=== PATIENT | male | born 1980 | race African-American/Black ===

== ENCOUNTER 2017-01-29 03:57 | Emergency (ER) | payer OTHER ==
[~2017-01-29] VITALS: Ht 185.4 cm; Wt 80.5 kg
[~2017-01-29 03:57] MED LIST: ALLEGRA60 MG PO; BACTRIM,SEPT1 TABLET PO; FLEXERIL10 MG PO; LORTAB 5-325 M1 EACH PO; MOTRIN800 MG PO; PERCOCET 5/31 TABLET PO; ULTRAM50 MG PO; VALIUM5 MG PO
[2017-01-29] MEDS ORDERED: NARCAN4 MG NS (04:13)
[2017-01-29] MEDS ORDERED: PEN-VEE K,VEET500 MG PO (05:27)
[2017-01-29 05:37] VITALS: BP 113/76
== END 2017-01-29 05:38 | disposition home or self-care (01) ==
LOC: EME 03:57
DX: T40.2X1A Poisoning by other opioids, accidental (unintentional), initial encounter (principal); K02.9 Dental caries, unspecified; F17.200 Nicotine dependence, unspecified, uncomplicated
CPT/HCPCS: 80048; 81003; 85027; 99281; 99284; G0480; J2310

== ENCOUNTER 2017-10-20 15:05 | Inpatient (IN) | payer OTHER ==
[2017-10-20] VITALS (13 sets, daily range): BP systolic 120–222; BP diastolic 85–169
[~2017-10-20] VITALS: Ht 182.9 cm; Wt 81.2 kg
[~2017-10-20 15:05] MED LIST changes: +NARCAN4 MG NS; +PEN-VEE K,VEET500 MG PO
[2017-10-20 15:20] LABS: CREATININE 1.5 mg/dL (0.6-1.3); POTASSIUM 3.8 mEq/L (3.7-5.4)
[2017-10-20 15:32] LABS: EOSINOPHIL (%) 2.2 % (0-5); EOSINOPHIL COUNT 0.1 K/uL (0-0.3); HEMATOCRIT 34.5 % (38.0-50.0); IMMATURE GRANULOCYTE (%) 4.1 % (0.0-0.7); IMMATURE GRANULOCYTE COUNT 0.2 K/uL; INSTRUMENT ABS NEUTROPHIL CT 1.5 K/uL; LYMPHOCYTE COUNT 3.5 K/uL (1.0-2.8); MCH 32.8 PG (29.0-34.0); MCHC 33.9 G/DL (30.0-36.0); MCV 96.6 FL (86-99); MEAN PLAT.VOLUME 10.6 uM^3 (9.0-12.4); MONOCYTE (%) 4.3 % (3-12); MONOCYTE COUNT 0.2 K/uL (0-0.8); NEUTROPHIL (%) 26.1 % (45-76); NEUTROPHIL COUNT 1.5 K/uL (1.8-6.4); PLATELET COUNT 163 K/uL (156-360); RBC DIS.WIDTH-CV 12.4 % (11.8-14.6); RBC DIS.WIDTH-SD 44.2 % (39-53); RED BLOOD COUNT 3.57 M/uL (4.00-5.50); WHITE BLOOD COUNT 5.6 K/uL (4.1-10.2)
[2017-10-20 15:38] LABS: INTER. NORMALIZED RATIO 1.1; PROTHROMBIN TIME 12.7 SEC (10.2-12.9)
[2017-10-20 15:41] LABS: PTT 30.8 SEC (25-37)
[2017-10-20 15:43] LABS: CHLORIDE 105 mEq/L (99-109); POTASSIUM 3.9 mEq/L (3.7-5.4); SODIUM 142 mEq/L (136-147)
[2017-10-20 15:46] LABS: GLUCOSE 170 mg/dL (70-99)
[2017-10-20 15:47] LABS: ANION GAP 17 MEQ/L (2-14); TOTAL BILIRUBIN 0.5 mg/dL (0.0-1.0)
[2017-10-20 15:49] LABS: GFR ESTIMATE (CALCULATED) > 59 mL/min/ (58.99-99999); SERUM ETHYL ALCOHOL < 10 mg/dL
[2017-10-20 15:50] LABS: ALKALINE PHOSPHATASE 54 IU/L (3-129)
[2017-10-20 15:51] LABS: UREA NITROGEN (BUN) 17 mg/dL (9-23)
[2017-10-20 15:52] LABS: TROP-I INTERPRETATION NEGATIVE; TROPONIN-I < 0.01 ng/mL (0.0-0.30)
[2017-10-20 15:53] LABS: SALICYLATE < 5.0 MG/DL (15-30)
[2017-10-20 15:54] LABS: LIPASE 23 U/L (1.0-51.0)
[2017-10-20 15:55] LABS: BASE EXCESS -5.3 mEq/L (-3 to +3); BICARBONATE 22.6 mEq/L (22-26); CARBOXY HGB 4.2 % (0-5); PCO2 54 mm Hg (35-45); PO2 99 mm Hg (80-100)
[2017-10-20 15:56] LABS: pH 7.23 (7.35-7.45)
[2017-10-20 15:57] LABS: ADD MIUA? YES; BILIRUBIN NEGATIVE; BLOOD MODERATE; COLOR AMBER ((YELLOW)); GLUCOSE (STRIP) NEGATIVE; KETONES NEGATIVE; LEUKOCYTES NEGATIVE; NITRITE NEGATIVE; PROTEIN (STRIP) 100; SPECIFIC GRAVITY 1.025 (1.000-1.030)
[2017-10-20 15:57] LABS: COMMENTS - BLOOD GASES C+; DEVICE VENT; FI02 70 %; MECHANICAL RATE 14 resp/min; MODE AC; PEEP 5 CM/H20; SITE RR; TIDAL VOLUME 500 ML; TOTAL RESP RATE 14 resp/min
[2017-10-20 16:17] LABS: AMPHETAMINE PRESUMPTIVE POSITIVE (500 ng/mL); BENZODIAZEPINES PRESUMPTIVE POSITIVE (150 ng/mL); COCAINE PRESUMPTIVE POSITIVE (150 ng/mL); METHAMPHETAMINE NEGATIVE (500 ng/mL); OPIATES (MORPHINE) PRESUMPTIVE POSITIVE (100 ng/mL); PHENCYCLIDINE NEGATIVE (25 ng/mL); THC CANNABINOIDS PRESUMPTIVE POSITIVE (50 ng/mL); TRICYCLIC ANTIDEPRESSANTS NEGATIVE (300 ng/mL)
[2017-10-20 16:18] LABS: ADD MEDTOX COMMENT Y; BARBITURATES NEGATIVE (200 ng/mL); INTERNAL CONTROLS VALID? YES; METHADONE NEGATIVE (200 ng/mL); OXYCODONE PRESUMPTIVE POSITIVE (100 ng/mL); PROPOXYPHENE NEGATIVE (300 ng/mL)
[2017-10-20 16:19] LABS: BACTERIA RARE /HPF; CASTS NONE SEEN /LPF; CRYSTALS PRESENT; EPITHELIAL CELLS NONE SEEN /HPF; MUCUS NONE SEEN /LPF; RED BLOOD CELLS 20-30 /HPF (0-5); UCUL ADDED? NO; WHITE BLOOD CELLS 0-5 /HPF (0-5)
[2017-10-20 16:20] LABS: AMORPHOUS URATES CRYSTALS 3+
[2017-10-20 16:47] LABS: BENZODIAZEPINES, URINE SCREEN POSITIVE (200 ng/mL)
[2017-10-20 18:33] LABS: POINT-OF-CARE METER ID UU14174217
[2017-10-20 18:37] LABS: ANION GAP 14 MEQ/L (2-14); CHLORIDE 107 MEQ/L (99-109); MAGNESIUM 2.1 mg/dl (1.3-2.7); SAMPLE HEMOLYSIS CHECK 0; SAMPLE ICTERIC CHECK 0; SAMPLE LIPEMIA CHECK 0; SODIUM 141 MEQ/L (136-147)
[2017-10-20 18:41] LABS: PROTHROMBIN TIME 11.1 SEC (10.2-12.9)
[2017-10-20 18:43] LABS: GFR ESTIMATE (CALCULATED) > 59 mL/min/ (58.99-99999); GLUCOSE 141 mg/dL (70-99); UREA NITROGEN (BUN) 18 mg/dL (9-23)
[2017-10-20 18:44] LABS: PTT 31.2 SEC (25-37)
[2017-10-20 18:45] LABS: POTASSIUM 3.1 MEQ/L (3.7-5.4)
[2017-10-20 18:55] LABS: BASE EXCESS -2.5 mEq/L (-3 to +3); BICARBONATE 20.6 mEq/L (22-26); CARBOXY HGB 1.6 % (0-5); METHEMOGLOBIN 1.6 % (0-1.5)
[2017-10-20 18:56] LABS: DEVICE VENT; FI02 70 %; MECHANICAL RATE 14 resp/min; MODE AC; PCO2 31 mm Hg (35-45); PEEP 5 CM/H20; PO2 164 mm Hg (80-100); SITE ALINE; TIDAL VOLUME 500 ML; pH 7.43 (7.35-7.45)
[2017-10-20 19:18] LABS: METH RESISTANT S AUREUS PCR NEGATIVE (NEGATIVE)
[2017-10-20 20:01] LABS: PROBE CHECK PASS; SPECIMEN PROCESSING CONTROL PASS
[2017-10-20 20:03] LABS: EOSINOPHIL (%) 0.9 % (0-5); HEMATOCRIT 48.6 % (38.0-50.0); IMMATURE GRANULOCYTE (%) 0.9 % (0.0-0.7); INSTRUMENT ABS NEUTROPHIL CT 2.5 K/uL; LYMPHOCYTE COUNT 1.6 K/uL (1.0-2.8); MCH 31.7 PG (29.0-34.0); MCV 90.5 FL (86-99); MEAN PLAT.VOLUME 9.7 uM^3 (9.0-12.4); MONOCYTE COUNT 0.1 K/uL (0-0.8); NEUTROPHIL (%) 58.8 % (45-76); NEUTROPHIL COUNT 2.5 K/uL (1.8-6.4); PLATELET COUNT 219 K/uL (156-360); RBC DIS.WIDTH-CV 12.1 % (11.8-14.6); RBC DIS.WIDTH-SD 40.4 % (39-53); RED BLOOD COUNT 5.37 M/uL (4.00-5.50); WHITE BLOOD COUNT 4.3 K/uL (4.1-10.2)
[2017-10-21] VITALS (15 sets, daily range): BP systolic 109–183; BP diastolic 73–114
[2017-10-21 00:39] LABS: POINT-OF-CARE METER ID UU14174217; POINT-OF-CARE USER ID PHATLC
[2017-10-21 01:05] LABS: HEMATOCRIT 47.5 % (38.0-50.0); MCH 31.9 PG (29.0-34.0); MCHC 35.6 G/DL (30.0-36.0); MCV 89.8 FL (86-99); MEAN PLAT.VOLUME 10.5 uM^3 (9.0-12.4); PLATELET COUNT 231 K/uL (156-360); RBC DIS.WIDTH-CV 11.9 % (11.8-14.6); RBC DIS.WIDTH-SD 39.6 % (39-53); RED BLOOD COUNT 5.29 M/uL (4.00-5.50); WHITE BLOOD COUNT 8.9 K/uL (4.1-10.2)
[2017-10-21 01:08] LABS: INTER. NORMALIZED RATIO 1.1; PROTHROMBIN TIME 12.4 SEC (10.2-12.9)
[2017-10-21 01:19] LABS: CHLORIDE 111 mEq/L (99-109); POTASSIUM 2.7 mEq/L (3.7-5.4); SODIUM 143 mEq/L (136-147)
[2017-10-21 01:20] LABS: MAGNESIUM 1.9 mg/dL (1.3-2.7)
[2017-10-21 01:22] LABS: ANION GAP 16 MEQ/L (2-14); GLUCOSE 214 mg/dL (70-99)
[2017-10-21 01:25] LABS: GFR ESTIMATE (CALCULATED) > 59 mL/min/ (58.99-99999)
[2017-10-21 01:26] LABS: UREA NITROGEN (BUN) 18 mg/dL (9-23)
[2017-10-21 01:47] LABS: BASE EXCESS -8.4 mEq/L (-3 to +3); BICARBONATE 15.6 mEq/L (22-26); CARBOXY HGB 1.4 % (0-5); METHEMOGLOBIN 1.4 % (0-1.5); PCO2 29 mm Hg (35-45); PO2 135 mm Hg (80-100); pH 7.34 (7.35-7.45)
[2017-10-21 01:48] LABS: COMMENTS - BLOOD GASES C+; DEVICE 840; FI02 50 %; INSPIRATION TIME 0.9 seconds; MECHANICAL RATE 20 resp/min; MODE AC/VC+; PEEP 5 CM/H20; SITE A-LINE; TIDAL VOLUME 500 ML; TOTAL RESP RATE 28 resp/min
[2017-10-21 02:33] LABS: ABS NEUTROPHIL COUNT 6.9; EOSINOPHIL ABS CT 0; INSTRUMENT ABS NEUTROPHIL CT 7.5 K/uL; MACROCYTES 1+; PLAT.SUFFICIENCY ADEQUATE; PLATELET CLUMPS PRESENT - PLATELET COUNT APPEARS ADQ.; TEAR DROP CELLS 1+
[2017-10-21 03:42] LABS: MCV 90.2 FL (86-99)
[2017-10-21 05:57] LABS: HEMATOCRIT 42.9 % (38.0-50.0); MCH 32.8 PG (29.0-34.0); MCHC 36.1 G/DL (30.0-36.0); MCV 90.7 FL (86-99); MEAN PLAT.VOLUME 10.5 uM^3 (9.0-12.4); PLATELET COUNT 177 K/uL (156-360); RBC DIS.WIDTH-SD 40.2 % (39-53); RED BLOOD COUNT 4.73 M/uL (4.00-5.50); WHITE BLOOD COUNT 8.3 K/uL (4.1-10.2)
[2017-10-21 06:28] LABS: POINT-OF-CARE METER ID UU14208751; POINT-OF-CARE USER ID PHATLC
[2017-10-21 06:36] LABS: INTER. NORMALIZED RATIO 1.2; PROTHROMBIN TIME 13.8 SEC (10.2-12.9)
[2017-10-21 06:44] LABS: ANION GAP 18 MEQ/L (2-14); CHLORIDE 110 MEQ/L (99-109); GFR ESTIMATE (CALCULATED) > 59 mL/min/ (58.99-99999); GLUCOSE 207 mg/dL (70-99); POTASSIUM 2.7 MEQ/L (3.7-5.4); SAMPLE HEMOLYSIS CHECK 0; SAMPLE ICTERIC CHECK 0; SAMPLE LIPEMIA CHECK 0; SODIUM 141 MEQ/L (136-147); UREA NITROGEN (BUN) 16 mg/dL (9-23)
[2017-10-21 06:57] LABS: MAGNESIUM 1.5 mg/dl (1.3-2.7)
[2017-10-21 07:44] LABS: EOSINOPHIL (%) 0 % (0-5); HEMATOLOGY COMMENT 1 SMEAR COMPATIBLE; IMMATURE GRANULOCYTE (%) 0.2 % (0.0-0.7); INSTRUMENT ABS NEUTROPHIL CT 7.4 K/uL; LYMPHOCYTE COUNT 0.5 K/uL (1.0-2.8); MONOCYTE (%) 4.1 % (3-12); MONOCYTE COUNT 0.3 K/uL (0-0.8); NEUTROPHIL (%) 89.7 % (45-76); NEUTROPHIL COUNT 7.4 K/uL (1.8-6.4)
[2017-10-21 12:37] LABS: HEMATOCRIT 45.1 % (38.0-50.0); MCH 32.9 PG (29.0-34.0); MCHC 36.6 G/DL (30.0-36.0); MCV 89.8 FL (86-99); MEAN PLAT.VOLUME 10.4 uM^3 (9.0-12.4); PLATELET COUNT 177 K/uL (156-360); RBC DIS.WIDTH-CV 11.9 % (11.8-14.6); RED BLOOD COUNT 5.02 M/uL (4.00-5.50); WHITE BLOOD COUNT 11.1 K/uL (4.1-10.2)
[2017-10-21 12:40] LABS: INTER. NORMALIZED RATIO 1.2
[2017-10-21 13:01] LABS: ANION GAP 16 MEQ/L (2-14); CHLORIDE 109 MEQ/L (99-109); MAGNESIUM 1.4 mg/dl (1.3-2.7); SAMPLE HEMOLYSIS CHECK 0; SAMPLE ICTERIC CHECK 0; SAMPLE LIPEMIA CHECK 0; SODIUM 141 MEQ/L (136-147)
[2017-10-21 13:05] LABS: ABS NEUTROPHIL COUNT 9.6; ANISOCYTOSIS 1+; ATYPICAL LYMPHOCYTE 0.9 %; BAND NEUTROPHILS 16.5 % (0-8.0); BURR CELLS 2+; EOSINOPHIL ABS CT 0; INSTRUMENT ABS NEUTROPHIL CT 9.8 K/uL; LYMPHOCYTES 10.4 % (15.0-45.0); MACROCYTES 1+; PLAT.SUFFICIENCY ADEQUATE; POIKILOCYTOSIS 2+; SEG.NEUTROPHILS 70.4 % (46.0-76.0); SMUDGE CELLS 2.6
[2017-10-21 13:07] LABS: GFR ESTIMATE (CALCULATED) > 59 mL/min/ (58.99-99999); GLUCOSE 157 mg/dL (70-99); UREA NITROGEN (BUN) 14 mg/dL (9-23)
[2017-10-21 16:18] LABS: BASE EXCESS -9.3 mEq/L (-3 to +3); BICARBONATE 16.4 mEq/L (22-26); CARBOXY HGB 1.3 % (0-5); METHEMOGLOBIN 1.4 % (0-1.5)
[2017-10-21 16:19] LABS: COMMENTS - BLOOD GASES C+; DEVICE VENTIALTOR; FI02 40 %; INSPIRATION TIME 0.9 seconds; MECHANICAL RATE 20 resp/min; MODE AC+; PCO2 35 mm Hg (35-45); PEEP 5 CM/H20; PO2 87 mm Hg (80-100); SITE A LINE; TIDAL VOLUME 500 ML; TOTAL RESP RATE 26 resp/min; pH 7.28 (7.35-7.45)
[2017-10-21 18:00] LABS: HEMATOCRIT 44.5 % (38.0-50.0); MCH 32.6 PG (29.0-34.0); MCHC 36.9 G/DL (30.0-36.0); MCV 88.5 FL (86-99); MEAN PLAT.VOLUME 10.5 uM^3 (9.0-12.4); PLATELET COUNT 187 K/uL (156-360); RBC DIS.WIDTH-CV 11.7 % (11.8-14.6); RBC DIS.WIDTH-SD 37.2 % (39-53); RED BLOOD COUNT 5.03 M/uL (4.00-5.50); WHITE BLOOD COUNT 14.2 K/uL (4.1-10.2)
[2017-10-21 18:09] LABS: INTER. NORMALIZED RATIO 1.3; PROTHROMBIN TIME 14.6 SEC (10.2-12.9)
[2017-10-21 18:15] LABS: ANION GAP 14 MEQ/L (2-14); CHLORIDE 107 MEQ/L (99-109); MAGNESIUM 1.3 mg/dl (1.3-2.7); POTASSIUM 3.3 MEQ/L (3.7-5.4); SAMPLE HEMOLYSIS CHECK 0; SAMPLE ICTERIC CHECK 0; SAMPLE LIPEMIA CHECK 0; SODIUM 138 MEQ/L (136-147)
[2017-10-21 18:20] LABS: GFR ESTIMATE (CALCULATED) > 59 mL/min/ (58.99-99999); GLUCOSE 134 mg/dL (70-99); UREA NITROGEN (BUN) 13 mg/dL (9-23)
[2017-10-21 18:48] LABS: ANISOCYTOSIS 1+; ATYPICAL LYMPHOCYTE 2.6 %; EOSINOPHIL ABS CT 0; HYPOCHROMASIA 1+; INSTRUMENT ABS NEUTROPHIL CT 12.6 K/uL; LYMPHOCYTES 8.7 % (15.0-45.0); METAMYELOCYTES 0.8 %; PLAT.SUFFICIENCY ADEQUATE
[2017-10-21 19:05] LABS: BAND NEUTROPHILS 43.5 % (0-8.0); SEG.NEUTROPHILS 40.9 % (46.0-76.0)
[2017-10-21 19:18] LABS: UR CREATININE CONCENTRATION 33.2 MG/DL
[2017-10-21 22:10] LABS: BASE EXCESS -6.8 mEq/L (-3 to +3); BICARBONATE 18.5 mEq/L (22-26); METHEMOGLOBIN 1.3 % (0-1.5); PCO2 36 mm Hg (35-45); PO2 83 mm Hg (80-100); pH 7.32 (7.35-7.45)
[2017-10-21 22:11] LABS: COMMENTS - BLOOD GASES C+; DEVICE 840; FI02 40 %; INSPIRATION TIME 0.9 seconds; MECHANICAL RATE 20 resp/min; MODE AC/VC+; PEEP 5 CM/H20; SITE A-LINE; TIDAL VOLUME 550 ML; TOTAL RESP RATE 24 resp/min
[2017-10-22] VITALS: BP 124/69
[2017-10-22 00:36] LABS: HEMATOCRIT 40.5 % (38.0-50.0); MCH 32.3 PG (29.0-34.0); MCHC 37.3 G/DL (30.0-36.0); MCV 86.5 FL (86-99); MEAN PLAT.VOLUME 10.3 uM^3 (9.0-12.4); PLATELET COUNT 162 K/uL (156-360); RBC DIS.WIDTH-CV 11.3 % (11.8-14.6); RBC DIS.WIDTH-SD 36.3 % (39-53); RED BLOOD COUNT 4.68 M/uL (4.00-5.50); WHITE BLOOD COUNT 16.3 K/uL (4.1-10.2)
[2017-10-22 00:37] LABS: INTER. NORMALIZED RATIO 1.4; PROTHROMBIN TIME 15.7 SEC (10.2-12.9)
[2017-10-22 00:48] LABS: POTASSIUM 3.5 mEq/L (3.7-5.4)
[2017-10-22 00:49] LABS: MAGNESIUM 1.9 mg/dL (1.3-2.7)
[2017-10-22 00:50] LABS: GLUCOSE 104 mg/dL (70-99)
[2017-10-22 00:52] LABS: ANION GAP 13 MEQ/L (2-14)
[2017-10-22 00:53] LABS: POINT-OF-CARE METER ID UU14314082; POINT-OF-CARE USER ID PHATLC
[2017-10-22 00:54] LABS: GFR ESTIMATE (CALCULATED) > 59 mL/min/ (58.99-99999)
[2017-10-22 00:55] LABS: UREA NITROGEN (BUN) 12 mg/dL (9-23)
[2017-10-22 01:07] LABS: ABS NEUTROPHIL COUNT 14.9; ACANTHOCYTES 1+; ATYPICAL LYMPHOCYTE 0.9 %; BURR CELLS 2+; EOSINOPHIL ABS CT 0; INSTRUMENT ABS NEUTROPHIL CT 14.9 K/uL; LYMPHOCYTES 4.3 % (15.0-45.0); OVALOCYTES 1+; PLAT.SUFFICIENCY ADEQUATE; POIKILOCYTOSIS 2+
[2017-10-22 01:10] LABS: CHLORIDE 98 mEq/L (99-109); SODIUM 128 mEq/L (136-147)
[2017-10-22 03:05] LABS: BAND NEUTROPHILS 11.3 % (0-8.0)
[2017-10-22 04:00] VITALS: BP 135/90
[2017-10-22 04:37] LABS: BASE EXCESS -4.6 mEq/L (-3 to +3); BICARBONATE 20.4 mEq/L (22-26); CARBOXY HGB 1.2 % (0-5); METHEMOGLOBIN 1.6 % (0-1.5); PCO2 37 mm Hg (35-45); PO2 85 mm Hg (80-100); pH 7.35 (7.35-7.45)
[2017-10-22 04:38] LABS: COMMENTS - BLOOD GASES C+; DEVICE 840; FI02 40 %; INSPIRATION TIME 0.9 seconds; MECHANICAL RATE 20 resp/min; MODE AC/VC+; PEEP 5 CM/H20; SITE A-LINE; TIDAL VOLUME 550 ML; TOTAL RESP RATE 23 resp/min
[2017-10-22 06:22] LABS: INTER. NORMALIZED RATIO 1.3; PROTHROMBIN TIME 15.4 SEC (10.2-12.9)
[2017-10-22 06:28] LABS: HEMATOCRIT 43.8 % (38.0-50.0); MCH 31.8 PG (29.0-34.0); MCHC 36.8 G/DL (30.0-36.0); MCV 86.6 FL (86-99); MEAN PLAT.VOLUME 10.6 uM^3 (9.0-12.4); PLATELET COUNT 187 K/uL (156-360); RBC DIS.WIDTH-CV 11.8 % (11.8-14.6); RBC DIS.WIDTH-SD 37.6 % (39-53); RED BLOOD COUNT 5.06 M/uL (4.00-5.50); WHITE BLOOD COUNT 21.3 K/uL (4.1-10.2)
[2017-10-22 07:01] LABS: ANION GAP 13 MEQ/L (2-14); CHLORIDE 104 MEQ/L (99-109); GFR ESTIMATE (CALCULATED) > 59 mL/min/ (58.99-99999); GLUCOSE 108 mg/dL (70-99); POTASSIUM 3.3 MEQ/L (3.7-5.4); SAMPLE HEMOLYSIS CHECK 0; SAMPLE ICTERIC CHECK 0; SAMPLE LIPEMIA CHECK 0; UREA NITROGEN (BUN) 13 mg/dL (9-23)
[2017-10-22 07:05] LABS: ABS NEUTROPHIL COUNT 18.4; ANISOCYTOSIS 2+; ATYPICAL LYMPHOCYTE 0.9 %; BAND NEUTROPHILS 19.5 % (0-8.0); EOSINOPHIL ABS CT 0; LYMPHOCYTES 2.1 % (15.0-45.0); MACROCYTES 1+; METAMYELOCYTES 5.2 %; PLAT.SUFFICIENCY ADEQUATE; SEG.NEUTROPHILS 66.7 % (46.0-76.0)
[2017-10-22 07:07] LABS: MAGNESIUM 2.1 mg/dl (1.3-2.7); SODIUM 138 MEQ/L (136-147)
[2017-10-22 08:00] VITALS: BP 151/105
[2017-10-22 12:00] VITALS: BP 147/107
[2017-10-22 12:20] LABS: MCH 32.9 PG (29.0-34.0); MCHC 37.4 G/DL (30.0-36.0); MCV 88.1 FL (86-99); MEAN PLAT.VOLUME 10.6 uM^3 (9.0-12.4); PLATELET COUNT 164 K/uL (156-360); RBC DIS.WIDTH-CV 11.9 % (11.8-14.6); RBC DIS.WIDTH-SD 38.5 % (39-53); RED BLOOD COUNT 4.77 M/uL (4.00-5.50)
[2017-10-22 12:28] LABS: INTER. NORMALIZED RATIO 1.4; PROTHROMBIN TIME 16.6 SEC (10.2-12.9)
[2017-10-22 13:07] LABS: ABS NEUTROPHIL COUNT 18.9; ATYPICAL LYMPHOCYTE 0.8 %; BAND NEUTROPHILS 19.6 % (0-8.0); BASOPHIL COUNT 0.1 K/uL (0-0.1); EOSINOPHIL (%) 0 % (0-5); EOSINOPHIL ABS CT 0; IMMATURE GRANULOCYTE (%) 2.2 % (0.0-0.7); IMMATURE GRANULOCYTE COUNT 0.5 K/uL; INSTRUMENT ABS NEUTROPHIL CT 18.6 K/uL; LYMPHOCYTE COUNT 0.9 K/uL (1.0-2.8); LYMPHOCYTES 4.3 % (15.0-45.0); METAMYELOCYTES 2.1 %; MONOCYTE COUNT 1.1 K/uL (0-0.8); MYELOCYTES 0.4 %; NEUTROPHIL (%) 88.4 % (45-76); NEUTROPHIL COUNT 18.6 K/uL (1.8-6.4); PLAT.SUFFICIENCY ADEQUATE; SEG.NEUTROPHILS 70.2 % (46.0-76.0); SMUDGE CELLS 0.4
[2017-10-22 13:14] LABS: ANION GAP 12 MEQ/L (2-14); CHLORIDE 107 MEQ/L (99-109); GFR ESTIMATE (CALCULATED) > 59 mL/min/ (58.99-99999); GLUCOSE 97 mg/dL (70-99); POTASSIUM 3.7 MEQ/L (3.7-5.4); SAMPLE HEMOLYSIS CHECK 0; SAMPLE ICTERIC CHECK 0; SAMPLE LIPEMIA CHECK 0; SODIUM 140 MEQ/L (136-147); UREA NITROGEN (BUN) 15 mg/dL (9-23)
[2017-10-22 16:00] VITALS: BP 132/95
[2017-10-22 16:22] LABS: BASE EXCESS -2.1 mEq/L (-3 to +3); BICARBONATE 21.2 mEq/L (22-26); CARBOXY HGB 1.6 % (0-5); METHEMOGLOBIN 1.5 % (0-1.5); PO2 79 mm Hg (80-100); pH 7.43 (7.35-7.45)
[2017-10-22 16:23] LABS: COMMENTS - BLOOD GASES A+; DEVICE 840; FI02 40 %; INSPIRATION TIME 0.9 seconds; MECHANICAL RATE 20 resp/min; MODE AC/VC+; PCO2 32 mm Hg (35-45); PEEP 5 CM/H20; SITE ALINE; TIDAL VOLUME 500 ML; TOTAL RESP RATE 23 resp/min
[2017-10-22 18:16] LABS: HEMATOCRIT 41.1 % (38.0-50.0); MCH 32.8 PG (29.0-34.0); MCHC 37.5 G/DL (30.0-36.0); MCV 87.6 FL (86-99); MEAN PLAT.VOLUME 11.2 uM^3 (9.0-12.4); PLATELET COUNT 166 K/uL (156-360); RBC DIS.WIDTH-CV 11.9 % (11.8-14.6); RBC DIS.WIDTH-SD 38.1 % (39-53); RED BLOOD COUNT 4.69 M/uL (4.00-5.50); WHITE BLOOD COUNT 20.2 K/uL (4.1-10.2)
[2017-10-22 18:22] LABS: INTER. NORMALIZED RATIO 1.4; PROTHROMBIN TIME 16.2 SEC (10.2-12.9)
[2017-10-22 18:27] LABS: DIRECT BILIRUBIN 0.2 mg/dL (0.0-0.3); TOTAL BILIRUBIN 1.1 MG/DL (0.0-1.0)
[2017-10-22 18:32] LABS: ALKALINE PHOSPHATASE 62 IU/L (3-129)
[2017-10-22 18:49] LABS: ANION GAP 12 MEQ/L (2-14); CHLORIDE 107 MEQ/L (99-109); GFR ESTIMATE (CALCULATED) > 59 mL/min/ (58.99-99999); GLUCOSE 99 mg/dL (70-99); SAMPLE HEMOLYSIS CHECK 1; SAMPLE ICTERIC CHECK 0; SAMPLE LIPEMIA CHECK 0; SODIUM 138 MEQ/L (136-147); UREA NITROGEN (BUN) 16 mg/dL (9-23)
[2017-10-22 18:50] LABS: POTASSIUM 4.7 MEQ/L (3.7-5.4)
[2017-10-22 19:02] LABS: ABS NEUTROPHIL COUNT 18.3; BAND NEUTROPHILS 37.6 % (0-8.0); EOSINOPHIL ABS CT 0; INSTRUMENT ABS NEUTROPHIL CT 17.9 K/uL; LYMPHOCYTES 4.4 % (15.0-45.0); METAMYELOCYTES 0.5 %; SEG.NEUTROPHILS 53.1 % (46.0-76.0)
[2017-10-22 20:00] VITALS: BP 125/89
[2017-10-23] VITALS: BP 149/105
[2017-10-23 00:35] LABS: HEMATOCRIT 39.6 % (38.0-50.0); MCH 32.2 PG (29.0-34.0); MCHC 36.6 G/DL (30.0-36.0); MCV 87.8 FL (86-99); MEAN PLAT.VOLUME 11.2 uM^3 (9.0-12.4); PLATELET COUNT 138 K/uL (156-360); RBC DIS.WIDTH-CV 12.1 % (11.8-14.6); RBC DIS.WIDTH-SD 39.2 % (39-53); RED BLOOD COUNT 4.51 M/uL (4.00-5.50); WHITE BLOOD COUNT 17.4 K/uL (4.1-10.2)
[2017-10-23 00:44] LABS: INTER. NORMALIZED RATIO 1.5; PROTHROMBIN TIME 16.5 SEC (10.2-12.9)
[2017-10-23 00:48] LABS: POTASSIUM 3.9 mEq/L (3.7-5.4); SODIUM 143 mEq/L (136-147)
[2017-10-23 00:49] LABS: MAGNESIUM 1.9 mg/dL (1.3-2.7)
[2017-10-23 00:50] LABS: CHLORIDE 112 mEq/L (99-109); GLUCOSE 103 mg/dL (70-99)
[2017-10-23 00:51] LABS: ANION GAP 12 MEQ/L (2-14)
[2017-10-23 00:54] LABS: GFR ESTIMATE (CALCULATED) > 59 mL/min/ (58.99-99999)
[2017-10-23 00:55] LABS: UREA NITROGEN (BUN) 20 mg/dL (9-23)
[2017-10-23 01:46] LABS: ANISOCYTOSIS 1+; ATYPICAL LYMPHOCYTE 2.6 %; EOSINOPHIL ABS CT 0; INSTRUMENT ABS NEUTROPHIL CT 14.9 K/uL; LYMPHOCYTES 4.3 % (15.0-45.0); MACROCYTES 1+; PLAT.SUFFICIENCY DECREASED; POIKILOCYTOSIS 1+
[2017-10-23 03:59] LABS: BAND NEUTROPHILS 17.4 % (0-8.0); SEG.NEUTROPHILS 74.8 % (46.0-76.0)
[2017-10-23 06:00] LABS: HEMATOCRIT 38.3 % (38.0-50.0); MCH 31.7 PG (29.0-34.0); MCHC 35.5 G/DL (30.0-36.0); MCV 89.3 FL (86-99); MEAN PLAT.VOLUME 11.5 uM^3 (9.0-12.4); PLATELET COUNT 141 K/uL (156-360); RBC DIS.WIDTH-CV 12.5 % (11.8-14.6); RBC DIS.WIDTH-SD 40.5 % (39-53); RED BLOOD COUNT 4.29 M/uL (4.00-5.50); WHITE BLOOD COUNT 17.1 K/uL (4.1-10.2)
[2017-10-23 06:24] LABS: INTER. NORMALIZED RATIO 1.3; PROTHROMBIN TIME 15.3 SEC (10.2-12.9)
[2017-10-23 06:31] LABS: ANION GAP 8 MEQ/L (2-14); CHLORIDE 112 MEQ/L (99-109); GFR ESTIMATE (CALCULATED) > 59 mL/min/ (58.99-99999); GLUCOSE 97 mg/dL (70-99); MAGNESIUM 2.1 mg/dl (1.3-2.7); SAMPLE HEMOLYSIS CHECK 0; SAMPLE ICTERIC CHECK 0; SAMPLE LIPEMIA CHECK 0; SODIUM 142 MEQ/L (136-147); UREA NITROGEN (BUN) 20 mg/dL (9-23)
[2017-10-23 06:40] LABS: ABS NEUTROPHIL COUNT 15.9; BAND NEUTROPHILS 1.7 % (0-8.0); EOSINOPHIL ABS CT 0; INSTRUMENT ABS NEUTROPHIL CT 14.7 K/uL; LYMPHOCYTES 5.2 % (15.0-45.0); SEG.NEUTROPHILS 91.3 % (46.0-76.0)
[2017-10-23 07:38] LABS: ALKALINE PHOSPHATASE 56 IU/L (3-129); DIRECT BILIRUBIN 0.7 mg/dL (0.0-0.3); TOTAL BILIRUBIN 1.3 MG/DL (0.0-1.0)
[2017-10-23 12:20] LABS: HEMATOCRIT 37.4 % (38.0-50.0); MCH 31.7 PG (29.0-34.0); MCHC 35.3 G/DL (30.0-36.0); MCV 89.9 FL (86-99); MEAN PLAT.VOLUME 10.9 uM^3 (9.0-12.4); PLATELET COUNT 125 K/uL (156-360); RBC DIS.WIDTH-CV 12.9 % (11.8-14.6); RBC DIS.WIDTH-SD 42.1 % (39-53); RED BLOOD COUNT 4.16 M/uL (4.00-5.50)
[2017-10-23 12:30] LABS: INTER. NORMALIZED RATIO 1.3; PROTHROMBIN TIME 14.7 SEC (10.2-12.9)
[2017-10-23 12:51] LABS: EOSINOPHIL (%) 0 % (0-5); IMMATURE GRANULOCYTE (%) 3.1 % (0.0-0.7); IMMATURE GRANULOCYTE COUNT 0.5 K/uL; INSTRUMENT ABS NEUTROPHIL CT 14.6 K/uL; LYMPHOCYTE COUNT 1.1 K/uL (1.0-2.8); MONOCYTE COUNT 0.9 K/uL (0-0.8); NEUTROPHIL (%) 85.6 % (45-76); NEUTROPHIL COUNT 14.6 K/uL (1.8-6.4)
[2017-10-23 13:05] LABS: ANION GAP 7 MEQ/L (2-14); CHLORIDE 114 MEQ/L (99-109); GFR ESTIMATE (CALCULATED) > 59 mL/min/ (58.99-99999); GLUCOSE 95 mg/dL (70-99); MAGNESIUM 2.2 mg/dl (1.3-2.7); SAMPLE HEMOLYSIS CHECK 0; SAMPLE ICTERIC CHECK 0; SAMPLE LIPEMIA CHECK 0; SODIUM 144 MEQ/L (136-147); UREA NITROGEN (BUN) 20 mg/dL (9-23)
[2017-10-23 17:28] LABS: BASE EXCESS -0.3 mEq/L (-3 to +3); BICARBONATE 22.1 mEq/L (22-26); METHEMOGLOBIN 1.8 % (0-1.5); PCO2 29 mm Hg (35-45); pH 7.49 (7.35-7.45)
[2017-10-23 17:30] LABS: COMMENTS - BLOOD GASES C+ANA; DEVICE 840 PB; FI02 40 %; MECHANICAL RATE 20 resp/min; MODE ACVC+; PO2 115 mm Hg (80-100); SITE ALINE; TOTAL RESP RATE 20 resp/min
[2017-10-23 17:31] LABS: INSPIRATION TIME 0.9 seconds; PEEP 5 CM/H20; TIDAL VOLUME 500 ML
[2017-10-23 17:49] LABS: BICARBONATE 24.3 mEq/L (22-26); CARBOXY HGB 1.4 % (0-5); METHEMOGLOBIN 1.6 % (0-1.5)
[2017-10-23 17:50] LABS: COMMENTS - BLOOD GASES C+ANA; DEVICE CATHETER IN ETT; FI02 100 %; O2 FLOW 10 L/MIN; PCO2 42 mm Hg (35-45); PO2 435 mm Hg (80-100); SITE ALINE; pH 7.37 (7.35-7.45)
[2017-10-23 17:57] LABS: BASE EXCESS -3.4 mEq/L (-3 to +3); BICARBONATE 25.6 mEq/L (22-26); CARBOXY HGB 1.5 % (0-5); METHEMOGLOBIN 1.8 % (0-1.5)
[2017-10-23 17:58] LABS: COMMENTS - BLOOD GASES C+ANA; DEVICE CATHETER; FI02 100 %; O2 FLOW 10 L/MIN; PCO2 64 mm Hg (35-45); PO2 378 mm Hg (80-100); SITE ALINE; pH 7.21 (7.35-7.45)
[2017-10-24 00:54] LABS: MCH 32.6 PG (29.0-34.0); MCHC 36.1 G/DL (30.0-36.0); MCV 90.1 FL (86-99); MEAN PLAT.VOLUME 11.7 uM^3 (9.0-12.4); PLATELET COUNT 145 K/uL (156-360); RBC DIS.WIDTH-SD 42.5 % (39-53); RED BLOOD COUNT 3.44 M/uL (4.00-5.50); WHITE BLOOD COUNT 16.7 K/uL (4.1-10.2)
[2017-10-24 00:59] LABS: INTER. NORMALIZED RATIO 1.2; PROTHROMBIN TIME 14.1 SEC (10.2-12.9)
[2017-10-24 01:01] LABS: CHLORIDE 121 mEq/L (99-109); POTASSIUM 4.1 mEq/L (3.7-5.4); SODIUM 148 mEq/L (136-147)
[2017-10-24 01:03] LABS: GLUCOSE 105 mg/dL (70-99)
[2017-10-24 01:05] LABS: ANION GAP 8 MEQ/L (2-14); MAGNESIUM 2.6 mg/dL (1.3-2.7)
[2017-10-24 01:07] LABS: GFR ESTIMATE (CALCULATED) > 59 mL/min/ (58.99-99999)
[2017-10-24 01:08] LABS: UREA NITROGEN (BUN) 22 mg/dL (9-23)
[2017-10-24 01:27] LABS: EOSINOPHIL (%) 0 % (0-5); IMMATURE GRANULOCYTE (%) 0.8 % (0.0-0.7); IMMATURE GRANULOCYTE COUNT 0.1 K/uL; INSTRUMENT ABS NEUTROPHIL CT 14.3 K/uL; LYMPHOCYTE COUNT 1.5 K/uL (1.0-2.8); MONOCYTE (%) 4.5 % (3-12); MONOCYTE COUNT 0.8 K/uL (0-0.8); NEUTROPHIL (%) 85.7 % (45-76); NEUTROPHIL COUNT 14.3 K/uL (1.8-6.4)
[2017-10-24 02:38] LABS: BASE EXCESS -1.6 mEq/L (-3 to +3); BICARBONATE 20.9 mEq/L (22-26); CARBOXY HGB 1.7 % (0-5); COMMENTS - BLOOD GASES C; DEVICE VENT; FI02 40 %; INSPIRATION TIME 0.9 seconds; MECHANICAL RATE 20 resp/min; METHEMOGLOBIN 1.5 % (0-1.5); MODE AC+; PCO2 28 mm Hg (35-45); PO2 132 mm Hg (80-100); SITE RR ALINE; TOTAL RESP RATE 20 resp/min; pH 7.48 (7.35-7.45)
[2017-10-24 02:39] LABS: PEEP 5 CM/H20; TIDAL VOLUME 550 ML
[2017-10-24 05:22] LABS: ADD MIUA? YES; BILIRUBIN NEGATIVE; BLOOD MODERATE; COLOR YELLOW ((YELLOW)); GLUCOSE (STRIP) 50; KETONES 5; LEUKOCYTES NEGATIVE; NITRITE NEGATIVE; PROTEIN (STRIP) NEGATIVE; SPECIFIC GRAVITY 1.009 (1.000-1.030); UROBILINOGEN 0.2 MG/DL (0.2-1.0)
[2017-10-24 05:25] LABS: BACTERIA RARE /HPF; EPITHELIAL CELLS RARE /HPF; HYALINE CASTS 0-5 /LPF; MUCUS TRACE /LPF; RED BLOOD CELLS 0-5 /HPF (0-5); WHITE BLOOD CELLS 0-5 /HPF (0-5)
[2017-10-24 06:02] LABS: BASE EXCESS -3.6 mEq/L (-3 to +3); BICARBONATE 19.5 mEq/L (22-26); CARBOXY HGB 1.5 % (0-5); METHEMOGLOBIN 1.7 % (0-1.5); PCO2 28 mm Hg (35-45); PO2 95 mm Hg (80-100); SITE ALINE; pH 7.45 (7.35-7.45)
[2017-10-24 06:03] LABS: DEVICE VENT; FI02 40 %; INSPIRATION TIME 0.9 seconds; MECHANICAL RATE 20 resp/min; MODE ACVC+; PEEP 5 CM/H20; TIDAL VOLUME 550 ML; TOTAL RESP RATE 20 resp/min
[2017-10-24 06:28] LABS: INTER. NORMALIZED RATIO 1.2; PROTHROMBIN TIME 14.1 SEC (10.2-12.9)
[2017-10-24 06:31] LABS: PTT 35.6 SEC (25-37)
[2017-10-24 06:43] LABS: ALKALINE PHOSPHATASE 34 IU/L (3-129); ANION GAP 6 MEQ/L (2-14); CHLORIDE 124 MEQ/L (99-109); GFR ESTIMATE (CALCULATED) > 59 mL/min/ (58.99-99999); GLUCOSE 142 mg/dL (70-99); MAGNESIUM 2.3 mg/dl (1.3-2.7); POTASSIUM 3.7 MEQ/L (3.7-5.4); SAMPLE HEMOLYSIS CHECK 0; SAMPLE ICTERIC CHECK 0; SAMPLE LIPEMIA CHECK 0; SODIUM 148 MEQ/L (136-147); UREA NITROGEN (BUN) 21 mg/dL (9-23)
[2017-10-24 06:44] LABS: TOTAL BILIRUBIN 2.9 MG/DL (0.0-1.0)
[2017-10-24 06:45] LABS: TROP-I INTERPRETATION NEGATIVE; TROPONIN-I 0.14 ng/mL (0.0-0.30)
[2017-10-24 07:22] LABS: ALKALINE PHOSPHATASE 36 IU/L (3-129); AMYLASE 44 IU/L (1-118); CREATINE KINASE 684 IU/L (1-294); GAMMA-GT 61 IU/L (4-73); LIPASE 5 U/L (1.0-51.0)
[2017-10-24 07:23] LABS: DIRECT BILIRUBIN 1.8 mg/dL (0.0-0.3); TOTAL BILIRUBIN 2.9 MG/DL (0.0-1.0)
[2017-10-24 08:11] LABS: Estimated Average Glucose 134 mg/dL (70-123)
[2017-10-24 08:32] LABS: HEMOGLOBIN A1c (GLYCOHEMOGLOB) 6.3 % HGB (Below 5.7)
[2017-10-24 12:06] LABS: BASE EXCESS -1.1 mEq/L (-3 to +3); BICARBONATE 23.5 mEq/L (22-26); CARBOXY HGB 1.9 % (0-5); COMMENTS - BLOOD GASES C+ANA; DEVICE 840 PB; FI02 40 %; METHEMOGLOBIN 1.5 % (0-1.5); PCO2 38 mm Hg (35-45); PO2 93 mm Hg (80-100); SITE ALINE
[2017-10-24 12:07] LABS: MECHANICAL RATE 12 resp/min; MODE BILEVEL; PRES. SUPPORT 0 CM/H2O; TOTAL RESP RATE 12 resp/min
[2017-10-24 12:12] LABS: ALKALINE PHOSPHATASE 35 IU/L (3-129); ANION GAP 4 MEQ/L (2-14); CHLORIDE 123 MEQ/L (99-109); GFR ESTIMATE (CALCULATED) > 59 mL/min/ (58.99-99999); GLUCOSE 146 mg/dL (70-99); POTASSIUM 4.2 MEQ/L (3.7-5.4); SAMPLE HEMOLYSIS CHECK 0; SAMPLE ICTERIC CHECK 1; SAMPLE LIPEMIA CHECK 0; SODIUM 149 MEQ/L (136-147); TOTAL BILIRUBIN 3.4 MG/DL (0.0-1.0); UREA NITROGEN (BUN) 26 mg/dL (9-23)
[2017-10-24 12:15] LABS: TROP-I INTERPRETATION NEGATIVE
[2017-10-24 12:16] LABS: INTER. NORMALIZED RATIO 1.3; PROTHROMBIN TIME 14.6 SEC (10.2-12.9)
[2017-10-24 12:19] LABS: PTT 32.6 SEC (25-37)
[2017-10-24 13:03] LABS: ALKALINE PHOSPHATASE 36 IU/L (3-129); AMYLASE 57 IU/L (1-118); DIRECT BILIRUBIN 2.5 mg/dL (0.0-0.3); LIPASE 3 U/L (1.0-51.0); MAGNESIUM 2.3 mg/dl (1.3-2.7); TOTAL BILIRUBIN 3.4 MG/DL (0.0-1.0)
[2017-10-24 13:19] LABS: CREATINE KINASE 589 IU/L (1-294); GAMMA-GT 67 IU/L (4-73)
[2017-10-24 18:17] LABS: BASE EXCESS -0.2 mEq/L (-3 to +3); BICARBONATE 23.9 mEq/L (22-26); CARBOXY HGB 1.6 % (0-5); METHEMOGLOBIN 1.2 % (0-1.5); PCO2 36 mm Hg (35-45); PO2 84 mm Hg (80-100); pH 7.43 (7.35-7.45)
[2017-10-24 18:18] LABS: COMMENTS - BLOOD GASES C+ANA; DEVICE 840 PB; FI02 40 %; MECHANICAL RATE 12 resp/min; MODE BILEVEL; SITE ALINE; TOTAL RESP RATE 12 resp/min
[2017-10-24 18:19] LABS: PRES. SUPPORT 0 CM/H2O
[2017-10-24 18:29] LABS: ALKALINE PHOSPHATASE 33 IU/L (3-129); ANION GAP 8 MEQ/L (2-14); CHLORIDE 121 MEQ/L (99-109); GFR ESTIMATE (CALCULATED) > 59 mL/min/ (58.99-99999); GLUCOSE 166 mg/dL (70-99); POTASSIUM 3.6 MEQ/L (3.7-5.4); SAMPLE HEMOLYSIS CHECK 0; SAMPLE ICTERIC CHECK 0; SAMPLE LIPEMIA CHECK 0; SODIUM 151 MEQ/L (136-147); TOTAL BILIRUBIN 2.9 MG/DL (0.0-1.0); UREA NITROGEN (BUN) 30 mg/dL (9-23)
[2017-10-24 18:32] LABS: INTER. NORMALIZED RATIO 1.3; PROTHROMBIN TIME 14.5 SEC (10.2-12.9)
[2017-10-24 18:35] LABS: TROP-I INTERPRETATION NEGATIVE
[2017-10-24 18:35] LABS: PTT 30.2 SEC (25-37)
[2017-10-24 19:00] LABS: ALKALINE PHOSPHATASE 33 IU/L (3-129); AMYLASE 67 IU/L (1-118); CREATINE KINASE 545 IU/L (1-294); DIRECT BILIRUBIN 1.8 mg/dL (0.0-0.3); GAMMA-GT 66 IU/L (4-73); LIPASE 5 U/L (1.0-51.0); MAGNESIUM 2.3 mg/dl (1.3-2.7); TOTAL BILIRUBIN 2.9 MG/DL (0.0-1.0)
[2017-10-24 21:51] LABS: ABS NEUTROPHIL COUNT 6.6; BAND NEUTROPHILS 6.1 % (0-8.0); EOSINOPHIL ABS CT 0.1; EOSINOPHILS 0.9 % (0-5.0); HEMATOCRIT 25.4 % (38.0-50.0); INSTRUMENT ABS NEUTROPHIL CT 6.5 K/uL; LYMPHOCYTES 6.1 % (15.0-45.0); MCH 32.5 PG (29.0-34.0); MCHC 34.6 G/DL (30.0-36.0); MCV 93.7 FL (86-99); MEAN PLAT.VOLUME 11.7 uM^3 (9.0-12.4); METAMYELOCYTES 1.8 %; PLAT.SUFFICIENCY DECREASED; RBC DIS.WIDTH-CV 13.7 % (11.8-14.6); RBC DIS.WIDTH-SD 46.5 % (39-53); SEG.NEUTROPHILS 83.3 % (46.0-76.0); SMUDGE CELLS 1.8; WHITE BLOOD COUNT 7.4 K/uL (4.1-10.2)
[2017-10-24 21:53] LABS: PLATELET COUNT 93 K/uL (156-360); RED BLOOD COUNT 2.71 M/uL (4.00-5.50)
[2017-10-24 23:43] LABS: HEMATOCRIT 26.7 % (38.0-50.0); MCH 32.1 PG (29.0-34.0); MCHC 34.5 G/DL (30.0-36.0); RBC DIS.WIDTH-CV 13.5 % (11.8-14.6); RBC DIS.WIDTH-SD 45.9 % (39-53); RED BLOOD COUNT 2.87 M/uL (4.00-5.50); WHITE BLOOD COUNT 7.7 K/uL (4.1-10.2)
[2017-10-25 00:05] LABS: EOSINOPHIL (%) 0 % (0-5); IMMATURE GRANULOCYTE (%) 0.3 % (0.0-0.7); INSTRUMENT ABS NEUTROPHIL CT 6.8 K/uL; LYMPHOCYTE COUNT 0.6 K/uL (1.0-2.8); MONOCYTE (%) 3.9 % (3-12); MONOCYTE COUNT 0.3 K/uL (0-0.8); NEUTROPHIL (%) 88.4 % (45-76); NEUTROPHIL COUNT 6.8 K/uL (1.8-6.4); PLATELET CLUMPS PRESENT - PLATELET COUNTS APPEARS DECREASED
[2017-10-25 00:06] LABS: PLATELET COUNT UNABLE TO REPORT K/uL (156-360)
[2017-10-25 00:52] LABS: BASE EXCESS 1.7 mEq/L (-3 to +3); BICARBONATE 25.7 mEq/L (22-26); CARBOXY HGB 1.4 % (0-5); METHEMOGLOBIN 1.4 % (0-1.5); PCO2 37 mm Hg (35-45); pH 7.45 (7.35-7.45)
[2017-10-25 00:53] LABS: DEVICE 840; FI02 40 %; MODE BILEVEL; PO2 123 mm Hg (80-100); SITE A-LINE
[2017-10-25 00:54] LABS: MECHANICAL RATE 12 resp/min; PEEP 0 CM/H20; PRESSURE CONTROL VENTILATION 21 CM H20; TOTAL RESP RATE 12 resp/min
[2017-10-25 01:00] LABS: EOSINOPHIL (%) 0 % (0-5); HEMATOCRIT 26.2 % (38.0-50.0); IMMATURE GRANULOCYTE (%) 0.3 % (0.0-0.7); INSTRUMENT ABS NEUTROPHIL CT 7.7 K/uL; LYMPHOCYTE COUNT 0.6 K/uL (1.0-2.8); MCH 32.7 PG (29.0-34.0); MCHC 35.5 G/DL (30.0-36.0); MCV 92.3 FL (86-99); MONOCYTE (%) 4.4 % (3-12); MONOCYTE COUNT 0.4 K/uL (0-0.8); NEUTROPHIL (%) 88.4 % (45-76); NEUTROPHIL COUNT 7.7 K/uL (1.8-6.4); RBC DIS.WIDTH-CV 13.4 % (11.8-14.6); RED BLOOD COUNT 2.84 M/uL (4.00-5.50); WHITE BLOOD COUNT 8.7 K/uL (4.1-10.2)
[2017-10-25 01:06] LABS: INTER. NORMALIZED RATIO 1.3; PROTHROMBIN TIME 14.3 SEC (10.2-12.9)
[2017-10-25 01:09] LABS: PTT 28.3 SEC (25-37)
[2017-10-25 01:10] LABS: PLATELET COUNT 92 K/uL (156-360)
[2017-10-25 01:13] LABS: CHLORIDE 119 mEq/L (99-109); POTASSIUM 3.4 mEq/L (3.7-5.4)
[2017-10-25 01:14] LABS: SODIUM 151 mEq/L (136-147)
[2017-10-25 01:16] LABS: AMYLASE 114 IU/L (1-118); GLUCOSE 150 mg/dL (70-99)
[2017-10-25 01:17] LABS: ANION GAP 8 MEQ/L (2-14)
[2017-10-25 01:19] LABS: ALKALINE PHOSPHATASE 37 IU/L (3-129); GFR ESTIMATE (CALCULATED) > 59 mL/min/ (58.99-99999)
[2017-10-25 01:21] LABS: ALKALINE PHOSPHATASE 38 IU/L (3-129); UREA NITROGEN (BUN) 32 mg/dL (9-23)
[2017-10-25 01:23] LABS: DIRECT BILIRUBIN 1.8 mg/dL (0.0-0.3)
[2017-10-25 01:25] LABS: CREATINE KINASE 510 IU/L (1-294); LIPASE 5 U/L (1.0-51.0); TROP-I INTERPRETATION NEGATIVE; TROPONIN-I 0.08 ng/mL (0.0-0.30)
[2017-10-25 01:31] LABS: MAGNESIUM 2.1 mg/dL (1.3-2.7); TOTAL BILIRUBIN 2.5 mg/dL (0.0-1.0)
[2017-10-25 02:42] LABS: GAMMA-GT 73 IU/L (4-73)
[2017-10-25 05:23] LABS: BASE EXCESS 0.8 mEq/L (-3 to +3); BICARBONATE 25.3 mEq/L (22-26); METHEMOGLOBIN 1.6 % (0-1.5); PCO2 39 mm Hg (35-45); pH 7.42 (7.35-7.45)
[2017-10-25 05:24] LABS: PO2 438 mm Hg (80-100); SITE A-LINE
[2017-10-25 05:25] LABS: DEVICE 840; FI02 100 %; MECHANICAL RATE 12 resp/min; MODE BILEVEL; PEEP 0 CM/H20; PRESSURE CONTROL VENTILATION 21 CM H20; TOTAL RESP RATE 12 resp/min
[2017-10-25 06:12] LABS: BASE EXCESS 0.9 mEq/L (-3 to +3); BICARBONATE 25.2 mEq/L (22-26); CARBOXY HGB 1.1 % (0-5); METHEMOGLOBIN 1.5 % (0-1.5); PCO2 38 mm Hg (35-45); PO2 421 mm Hg (80-100); SITE A-LINE; pH 7.43 (7.35-7.45)
[2017-10-25 06:13] LABS: DEVICE 840; FI02 100 %; MODE AC/PC; TOTAL RESP RATE 14 resp/min
[2017-10-25 06:14] LABS: COMMENTS - BLOOD GASES C+; PEEP 5 CM/H20; PRESSURE CONTROL VENTILATION 10 CM H20
[2017-10-25 06:30] LABS: EOSINOPHIL (%) 0 % (0-5); HEMATOCRIT 26.8 % (38.0-50.0); IMMATURE GRANULOCYTE (%) 0.3 % (0.0-0.7); INSTRUMENT ABS NEUTROPHIL CT 8.4 K/uL; LYMPHOCYTE COUNT 0.6 K/uL (1.0-2.8); MCH 32.1 PG (29.0-34.0); MCHC 34.3 G/DL (30.0-36.0); MCV 93.4 FL (86-99); MEAN PLAT.VOLUME 10.8 uM^3 (9.0-12.4); MONOCYTE (%) 5.3 % (3-12); MONOCYTE COUNT 0.5 K/uL (0-0.8); NEUTROPHIL (%) 88.3 % (45-76); NEUTROPHIL COUNT 8.4 K/uL (1.8-6.4); PLATELET COUNT 94 K/uL (156-360); RBC DIS.WIDTH-CV 13.7 % (11.8-14.6); RBC DIS.WIDTH-SD 46.5 % (39-53); RED BLOOD COUNT 2.87 M/uL (4.00-5.50); WHITE BLOOD COUNT 9.5 K/uL (4.1-10.2)
[2017-10-25 06:36] LABS: INTER. NORMALIZED RATIO 1.2; PROTHROMBIN TIME 14.2 SEC (10.2-12.9)
[2017-10-25 06:39] LABS: PTT 28.8 SEC (25-37)
[2017-10-25 07:08] LABS: ALKALINE PHOSPHATASE 34 IU/L (3-129); ANION GAP 6 MEQ/L (2-14); CHLORIDE 121 MEQ/L (99-109); GFR ESTIMATE (CALCULATED) > 59 mL/min/ (58.99-99999); GLUCOSE 160 mg/dL (70-99); POTASSIUM 3.6 MEQ/L (3.7-5.4); SAMPLE HEMOLYSIS CHECK 0; SAMPLE ICTERIC CHECK 0; SAMPLE LIPEMIA CHECK 0; SODIUM 152 MEQ/L (136-147); TOTAL BILIRUBIN 2.4 MG/DL (0.0-1.0); UREA NITROGEN (BUN) 30 mg/dL (9-23)
[2017-10-25 07:09] LABS: TROP-I INTERPRETATION NEGATIVE; TROPONIN-I 0.08 ng/mL (0.0-0.30)
[2017-10-25 08:25] LABS: AMYLASE 85 IU/L (1-118); CREATINE KINASE 372 IU/L (1-294); DIRECT BILIRUBIN 1.6 mg/dL (0.0-0.3); GAMMA-GT 76 IU/L (4-73); LIPASE 8 U/L (1.0-51.0); MAGNESIUM 2.3 mg/dl (1.3-2.7)
[2017-10-25 12:14] LABS: EOSINOPHIL (%) 0 % (0-5); HEMATOCRIT 27.3 % (38.0-50.0); IMMATURE GRANULOCYTE (%) 0.4 % (0.0-0.7); IMMATURE GRANULOCYTE COUNT 0.1 K/uL; INSTRUMENT ABS NEUTROPHIL CT 10.7 K/uL; LYMPHOCYTE COUNT 0.6 K/uL (1.0-2.8); MCH 32.4 PG (29.0-34.0); MCHC 34.8 G/DL (30.0-36.0); MCV 93.2 FL (86-99); MEAN PLAT.VOLUME 10.8 uM^3 (9.0-12.4); MONOCYTE (%) 4.6 % (3-12); MONOCYTE COUNT 0.5 K/uL (0-0.8); NEUTROPHIL COUNT 10.7 K/uL (1.8-6.4); PLATELET COUNT 102 K/uL (156-360); RBC DIS.WIDTH-CV 13.8 % (11.8-14.6); RBC DIS.WIDTH-SD 47.1 % (39-53); RED BLOOD COUNT 2.93 M/uL (4.00-5.50); WHITE BLOOD COUNT 11.8 K/uL (4.1-10.2)
[2017-10-25 12:23] LABS: INTER. NORMALIZED RATIO 1.2; PROTHROMBIN TIME 13.5 SEC (10.2-12.9)
[2017-10-25 12:26] LABS: PTT 29.1 SEC (25-37)
[2017-10-25 12:42] LABS: TROP-I INTERPRETATION NEGATIVE; TROPONIN-I 0.08 ng/mL (0.0-0.30)
[2017-10-25 12:53] LABS: ALKALINE PHOSPHATASE 36 IU/L (3-129); ANION GAP 6 MEQ/L (2-14); CHLORIDE 121 MEQ/L (99-109); GFR ESTIMATE (CALCULATED) > 59 mL/min/ (58.99-99999); GLUCOSE 156 mg/dL (70-99); POTASSIUM 3.7 MEQ/L (3.7-5.4); SAMPLE HEMOLYSIS CHECK 0; SAMPLE ICTERIC CHECK 0; SAMPLE LIPEMIA CHECK 0; SODIUM 151 MEQ/L (136-147); TOTAL BILIRUBIN 2.2 MG/DL (0.0-1.0); UREA NITROGEN (BUN) 25 mg/dL (9-23)
[2017-10-25 12:56] LABS: ALKALINE PHOSPHATASE 38 IU/L (3-129); AMYLASE 96 IU/L (1-118); CREATINE KINASE 309 IU/L (1-294); DIRECT BILIRUBIN 1.4 mg/dL (0.0-0.3); GAMMA-GT 82 IU/L (4-73); LIPASE 9 U/L (1.0-51.0); MAGNESIUM 2.4 mg/dl (1.3-2.7); TOTAL BILIRUBIN 2.2 MG/DL (0.0-1.0)
[2017-10-25 18:12] LABS: EOSINOPHIL (%) 0 % (0-5); HEMATOCRIT 26.6 % (38.0-50.0); IMMATURE GRANULOCYTE (%) 0.2 % (0.0-0.7); INSTRUMENT ABS NEUTROPHIL CT 8.5 K/uL; LYMPHOCYTE COUNT 0.5 K/uL (1.0-2.8); MCH 31.9 PG (29.0-34.0); MCHC 34.2 G/DL (30.0-36.0); MCV 93.3 FL (86-99); MONOCYTE (%) 5.4 % (3-12); MONOCYTE COUNT 0.5 K/uL (0-0.8); NEUTROPHIL (%) 89.6 % (45-76); NEUTROPHIL COUNT 8.5 K/uL (1.8-6.4); PLATELET COUNT 101 K/uL (156-360); RBC DIS.WIDTH-CV 13.7 % (11.8-14.6); RBC DIS.WIDTH-SD 46.8 % (39-53); RED BLOOD COUNT 2.85 M/uL (4.00-5.50); WHITE BLOOD COUNT 9.5 K/uL (4.1-10.2)
[2017-10-25 18:17] LABS: INTER. NORMALIZED RATIO 1.2; PROTHROMBIN TIME 13.3 SEC (10.2-12.9)
[2017-10-25 18:34] LABS: TROP-I INTERPRETATION NEGATIVE; TROPONIN-I 0.07 ng/mL (0.0-0.30)
[2017-10-25 18:38] LABS: ALKALINE PHOSPHATASE 37 IU/L (3-129); ANION GAP 8 MEQ/L (2-14); CHLORIDE 120 MEQ/L (99-109); GFR ESTIMATE (CALCULATED) > 59 mL/min/ (58.99-99999); GLUCOSE 178 mg/dL (70-99); POTASSIUM 3.5 MEQ/L (3.7-5.4); SAMPLE HEMOLYSIS CHECK 0; SAMPLE ICTERIC CHECK 0; SAMPLE LIPEMIA CHECK 0; SODIUM 151 MEQ/L (136-147); TOTAL BILIRUBIN 2.2 MG/DL (0.0-1.0); UREA NITROGEN (BUN) 24 mg/dL (9-23)
[2017-10-25 18:41] LABS: ALKALINE PHOSPHATASE 37 IU/L (3-129); CREATINE KINASE 217 IU/L (1-294); DIRECT BILIRUBIN 1.3 mg/dL (0.0-0.3); GAMMA-GT 81 IU/L (4-73); MAGNESIUM 2.5 mg/dl (1.3-2.7); TOTAL BILIRUBIN 2.2 MG/DL (0.0-1.0)
[2017-10-25 19:29] LABS: AMYLASE 95 IU/L (1-118); LIPASE 9 U/L (1.0-51.0)
[2017-10-25 22:26] LABS: ADD MIUA? YES; BILIRUBIN NEGATIVE; BLOOD MODERATE; COLOR AMBER ((YELLOW)); GLUCOSE (STRIP) 50; KETONES 5; LEUKOCYTES NEGATIVE; NITRITE NEGATIVE; PROTEIN (STRIP) NEGATIVE; SPECIFIC GRAVITY 1.031 (1.000-1.030); UROBILINOGEN 0.2 MG/DL (0.2-1.0)
[2017-10-25 22:31] LABS: BACTERIA RARE /HPF; EPITHELIAL CELLS NONE SEEN /HPF; MUCUS 1+ /LPF; RED BLOOD CELLS 30-40 /HPF (0-5); WHITE BLOOD CELLS 0-5 /HPF (0-5)
[2017-10-25 23:36] LABS: EOSINOPHIL (%) 0 % (0-5); HEMATOCRIT 26.2 % (38.0-50.0); IMMATURE GRANULOCYTE (%) 0.6 % (0.0-0.7); IMMATURE GRANULOCYTE COUNT 0.1 K/uL; INSTRUMENT ABS NEUTROPHIL CT 7.6 K/uL; LYMPHOCYTE COUNT 0.5 K/uL (1.0-2.8); MCH 32.3 PG (29.0-34.0); MCHC 34.7 G/DL (30.0-36.0); MCV 92.9 FL (86-99); MEAN PLAT.VOLUME 11.7 uM^3 (9.0-12.4); MONOCYTE (%) 6.3 % (3-12); MONOCYTE COUNT 0.6 K/uL (0-0.8); NEUTROPHIL (%) 87.1 % (45-76); NEUTROPHIL COUNT 7.6 K/uL (1.8-6.4); PLATELET COUNT 97 K/uL (156-360); RBC DIS.WIDTH-SD 47.5 % (39-53); RED BLOOD COUNT 2.82 M/uL (4.00-5.50); WHITE BLOOD COUNT 8.7 K/uL (4.1-10.2)
[2017-10-25 23:45] LABS: INTER. NORMALIZED RATIO 1.2; PROTHROMBIN TIME 13.6 SEC (10.2-12.9)
[2017-10-25 23:47] LABS: CHLORIDE 124 mEq/L (99-109); POTASSIUM 3.8 mEq/L (3.7-5.4); PTT 22.1 SEC (25-37); SODIUM 152 mEq/L (136-147)
[2017-10-25 23:48] LABS: AMYLASE 136 IU/L (1-118); MAGNESIUM 2.4 mg/dL (1.3-2.7)
[2017-10-25 23:50] LABS: GLUCOSE 162 mg/dL (70-99)
[2017-10-25 23:51] LABS: ANION GAP 5 MEQ/L (2-14)
[2017-10-25 23:53] LABS: ALKALINE PHOSPHATASE 46 IU/L (3-129); GFR ESTIMATE (CALCULATED) > 59 mL/min/ (58.99-99999)
[2017-10-25 23:54] LABS: TOTAL BILIRUBIN 1.9 mg/dL (0.0-1.0); UREA NITROGEN (BUN) 26 mg/dL (9-23)
[2017-10-25 23:55] LABS: DIRECT BILIRUBIN 1.4 mg/dL (0.0-0.3)
[2017-10-25 23:57] LABS: CREATINE KINASE 201 IU/L (1-294); LIPASE 13 U/L (1.0-51.0)
[2017-10-26 00:03] LABS: TROP-I INTERPRETATION NEGATIVE; TROPONIN-I 0.05 ng/mL (0.0-0.30)
[2017-10-26 03:47] LABS: BICARBONATE 27.3 mEq/L (22-26); CARBOXY HGB 1.1 % (0-5); METHEMOGLOBIN 1.2 % (0-1.5); PCO2 35 mm Hg (35-45)
[2017-10-26 03:48] LABS: PO2 105 mm Hg (80-100); SITE A-LINE
[2017-10-26 03:49] LABS: DEVICE 840; FI02 40 %; MECHANICAL RATE 12 resp/min; MODE BILEVEL; PEEP 0 CM/H20; PRESSURE CONTROL VENTILATION 21 CM H20; TOTAL RESP RATE 12 resp/min
[2017-10-26 04:08] LABS: EOSINOPHIL (%) 0 % (0-5); HEMATOCRIT 25.6 % (38.0-50.0); IMMATURE GRANULOCYTE (%) 0.6 % (0.0-0.7); IMMATURE GRANULOCYTE COUNT 0.1 K/uL; INSTRUMENT ABS NEUTROPHIL CT 7.6 K/uL; LYMPHOCYTE COUNT 0.5 K/uL (1.0-2.8); MCH 32.8 PG (29.0-34.0); MCHC 35.2 G/DL (30.0-36.0); MCV 93.4 FL (86-99); MEAN PLAT.VOLUME 10.8 uM^3 (9.0-12.4); MONOCYTE (%) 6.3 % (3-12); MONOCYTE COUNT 0.6 K/uL (0-0.8); NEUTROPHIL (%) 86.9 % (45-76); NEUTROPHIL COUNT 7.6 K/uL (1.8-6.4); PLATELET COUNT 91 K/uL (156-360); RBC DIS.WIDTH-CV 13.9 % (11.8-14.6); RBC DIS.WIDTH-SD 47.1 % (39-53); RED BLOOD COUNT 2.74 M/uL (4.00-5.50); WHITE BLOOD COUNT 8.7 K/uL (4.1-10.2)
[2017-10-26 04:17] LABS: CHLORIDE 122 mEq/L (99-109); POTASSIUM 3.2 mEq/L (3.7-5.4); SODIUM 153 mEq/L (136-147)
[2017-10-26 04:18] LABS: MAGNESIUM 2.3 mg/dL (1.3-2.7)
[2017-10-26 04:19] LABS: AMYLASE 139 IU/L (1-118); INTER. NORMALIZED RATIO 1.2; PROTHROMBIN TIME 13.6 SEC (10.2-12.9)
[2017-10-26 04:20] LABS: GLUCOSE 170 mg/dL (70-99)
[2017-10-26 04:21] LABS: ANION GAP 6 MEQ/L (2-14)
[2017-10-26 04:22] LABS: TOTAL BILIRUBIN 1.9 mg/dL (0.0-1.0)
[2017-10-26 04:23] LABS: ALKALINE PHOSPHATASE 48 IU/L (3-129)
[2017-10-26 04:24] LABS: GFR ESTIMATE (CALCULATED) > 59 mL/min/ (58.99-99999)
[2017-10-26 04:25] LABS: DIRECT BILIRUBIN 1.4 mg/dL (0.0-0.3); UREA NITROGEN (BUN) 26 mg/dL (9-23)
[2017-10-26 04:27] LABS: LIPASE 17 U/L (1.0-51.0)
[2017-10-26 04:34] LABS: TROP-I INTERPRETATION NEGATIVE; TROPONIN-I 0.06 ng/mL (0.0-0.30)
[2017-10-26 05:11] LABS: GAMMA-GT 83 IU/L (4-73)
[2017-10-26 05:11] LABS: GAMMA-GT 83 IU/L (4-73)
== END 2017-10-26 11:00 | DRG 917 ==
LOC: EME 15:05 → 4WEST 17:10 → EDOF 17:10 → ENRESERV 17:12 → 4WEST 17:30
PROVIDERS: Emergency Medicine; Internal Medicine Critical Care Medicine; Specialist; Surgery
PROC: 5A1955Z Respiratory Ventilation, Greater than 96 Consecutive Hours (ICD-10-PCS; principal; 2017-10-20)
PROC: 03HY32Z Insertion of Monitoring Device into Upper Artery, Percutaneous Approach (ICD-10-PCS; 2017-10-21)
PROC: 4A133B1 Monitoring of Arterial Pressure, Peripheral, Percutaneous Approach (ICD-10-PCS; 2017-10-21)
PROC: 0BJ08ZZ Inspection of Tracheobronchial Tree, Via Natural or Artificial Opening Endoscopic (ICD-10-PCS; 2017-10-24)
PROC: 0W9930Z Drainage of Right Pleural Cavity with Drainage Device, Percutaneous Approach (ICD-10-PCS; 2017-10-24)
DX: T42.4X2A Poisoning by benzodiazepines, intentional self-harm, initial encounter (principal); J96.01 Acute respiratory failure with hypoxia; I46.9 Cardiac arrest, cause unspecified; G93.6 Cerebral edema; J69.0 Pneumonitis due to inhalation of food and vomit; G93.1 Anoxic brain damage, not elsewhere classified; N17.9 Acute kidney failure, unspecified; R78.81 Bacteremia; I48.91 Unspecified atrial fibrillation; I47.1 Supraventricular tachycardia; J93.9 Pneumothorax, unspecified; E87.1 Hypo-osmolality and hyponatremia; E87.6 Hypokalemia; E83.39 Other disorders of phosphorus metabolism; T40.5X2A Poisoning by cocaine, intentional self-harm, initial encounter; T40.7X2A Poisoning by cannabis (derivatives), intentional self-harm, initial encounter; T40.2X2A Poisoning by other opioids, intentional self-harm, initial encounter; T43.622A Poisoning by amphetamines, intentional self-harm, initial encounter; R40.2432 Glasgow coma scale score 3-8, at arrival to emergency department; I10 Essential (primary) hypertension; F13.10 Sedative, hypnotic or anxiolytic abuse, uncomplicated; F41.9 Anxiety disorder, unspecified; F32.9 Major depressive disorder, single episode, unspecified; F17.200 Nicotine dependence, unspecified, uncomplicated; Z52.89 Donor of other specified organs or tissues
CPT/HCPCS: 36600; 36620; 70450; 71010; 80047; 80048; 80048 91; 80053; 80076; 80202; 81003; 82150; 82248; 82330; 82436; 82550; 82550 91; 82570; 82803; 82948; 82977; 83036; 83520 90; 83605; 83690; 83735; 83930; 83935; 84100; 84133; 84300; 84484; 84999; 85014; 85018; 85025; 85025 91; 85610; 85730; 86850; 86900; 86901; 87040; 87070; 87077; 87086; 87106; 87186; 87205; 87641; 87801; 90832; 93005; 93306; 93312; 94002; 94003; 95819; 99281; 99285; C1751; C1874; G0480; J0360; J1250; J1644; J1940; J2150; J2310; J2543; J2704; J2930; J3370; J3475; J3480; J7030; J7040; J7050; J7060; P9047; S0028